=== PATIENT | female | born 1960 ===

== ENCOUNTER 2023-10-19 06:00 | Day surgery (SDC) | payer OTHER ==
[~2023-10-19 06:00] MED LIST: BISOPROLOL-HCT1 EACH; CELLCEPT500 MG; CRESTOR10 MG; LEVOTHYROXINE88 MC1
[2023-10-19] MEDS ORDERED: CEFAZOLIN SODIUM 1,000 MG VIAL ONE (08:40)
[2023-10-19] MEDS ORDERED: CEFAZOLIN SODIUM 1,000 MG VIAL IV ONE (09:15)
== END 2023-10-19 10:45 | disposition home or self-care (01) ==
LOC: CIR.AMB 06:00
PROVIDERS: ATTEND Surgery Surgery of the Hand
DX: M65.842 Other synovitis and tenosynovitis, left hand (principal); Z20.822 Contact with and (suspected) exposure to COVID-19